=== PATIENT | female | born 1955 | race Caucasian/White ===

== ENCOUNTER 2018-08-07 08:21 | Emergency (ER) | payer BC ==
--- NOTE | 2018-08-07 09:15 | EDM.PDOC ---
ED HPI GENERAL MEDICAL PROBLEM - General Chief Complaint: Lower Extremity Injury/Pain Stated Complaint: RT KNEE Time Seen by Provider: 08/07/18 08:50 Source of Information: Reports: Patient History Limitations: Reports: No Limitations - History of Present Illness INITIAL COMMENTS - FREE TEXT/NARRATIVE: The patient reports to the ED with right knee pain. The patient reports she fell about 2 months ago, but twisted her knee 2 days ago (when her current symptoms started). The patient reports she has been resting the area, but continues to have both lateral and medial pain which increases with weigh bearing. 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 Right Knee Pain Score (Numeric/FACES): 8 - Related Data Allergies Allergy/AdvReac Type Severity Reaction Status Date / Time celecoxib [From Celebrex] Allergy Nausea Verified 08/07/18 08:34 [id number] [From Nubain] Allergy Hypotension Verified 08/07/18 08:34 prochlorperazine Allergy Anaphylactic Verified 08/07/18 08:34 [From Compazine] Shock Home Meds: Home Meds DULoxetine [Cymbalta] 60 mg PO DAILY 05/06/18 [History] Hydrocodone/Acetaminophen [Hydrocodon-Acetaminophen 5-325] 1 tab PO Q6H PRN [History] Ibuprofen 800 mg PO Q8HR PRN 05/06/18 [History] Lisinopril 40 mg PO DAILY 05/06/18 [History] Metaxalone [Skelaxin] 800 mg PO BID 05/06/18 [History] Metoprolol Succinate [Toprol XL 50mg] 50 mg PO DAILY 05/06/18 [History] Multivitamin [Multi-Vitamin Daily] 1 tab PO DAILY 05/06/18 [History] atorvaSTATin [Lipitor] 20 mg PO DAILY 05/06/18 [History] busPIRone HCl [Buspirone HCl] 7.5 mg PO DAILY 05/06/18 [History] metFORMIN HCl [Metformin HCl] 1,000 mg PO BID 05/06/18 [History] traZODone HCl [Trazodone HCl] 25 mg PO DAILY 05/06/18 [History] Past Medical History HEENT History: Reports: Impaired Vision Cardiovascular History: Reports: Hypertension Respiratory History: Reports: None Gastrointestinal History: Reports: None Genitourinary History: Reports: None 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 Neurological History: Reports: None Psychiatric History: Reports: Anxiety, Depression Endocrine/Metabolic History: Reports: Diabetes, Type II, Obesity/BMI 30+ Hematologic History: Reports: None Immunologic History: Reports: None Oncologic (Cancer) History: Reports: None Dermatologic History: Reports: None - Infectious Disease History Infectious Disease History: Reports: None - Past Surgical History Head Surgeries/Procedures: Reports: None Musculoskeletal Surgical History: Reports: Knee Replacement, Shoulder Replacement Social & Family History - Family History Family Medical History: Noncontributory - Tobacco Use Smoking Status *Q: Never Smoker Second Hand Smoke Exposure: No - Caffeine Use Caffeine Use: Reports: Coffee, Soda - Recreational Drug Use Recreational Drug Use: No - Living Situation & Occupation Living situation: Reports: , with Spouse Occupation: Unemployed Review of Systems - Review of Systems Review Of Systems: ROS reveals no pertinent complaints other than HPI. ED EXAM, GENERAL - Physical Exam Exam: See Below Exam Limited By: No Limitations General Appearance: Alert, WD/WN, Moderate Distress Eye Exam: Bilateral Eye: EOMI Ears: Normal External Exam Nose: Normal Inspection Throat/Mouth: Normal Inspection Head: Atraumatic Neck: Normal Inspection, Supple, Non-Tender, Full Range of Motion Respiratory/Chest: No Respiratory Distress, Lungs Clear, Normal Breath Sounds, No Accessory Muscle Use, Chest Non-Tender Cardiovascular: Normal Peripheral Pulses, Regular Rate, Rhythm, No Edema, No Gallop, No JVD, No Murmur, No Rub GI/Abdominal: Normal Bowel Sounds, Soft, Non-Tender, No Organomegaly, No Distention, No Abnormal Bruit, No Mass (Female) Exam: Deferred Rectal (Female) Exam: Deferred Back Exam: Normal Inspection, Full Range of Motion, NT Extremities: Non-Tender, No Pedal Edema, Leg Pain (right lateral and medial knee pain), Other (increased with medial and lateral movement. ) Neurological: Alert, Oriented, CN II-XII Intact, Normal Cognition, Normal Gait, Normal Reflexes, No Motor/Sensory Deficits Psychiatric: Normal Affect, Normal Mood Skin Exam: Warm, Dry, Intact, Normal Color, No Rash Lymphatic: No Adenopathy Course - Vital Signs Last Recorded V/S: Last Vital Signs Temp 36.0 C 08/07/18 08:30 Pulse 73 08/07/18 08:28 Resp 18 08/07/18 08:28 BP 130/68 08/07/18 08:28 Pulse Ox 98 08/07/18 08:28 Departure - Departure Time of Disposition: 09:14 Disposition: Home, Self-Care 01 Condition: Fair Clinical Impression: Strain of right knee Qualifiers: Encounter type: initial encounter Qualified Code(s): S86.911A - Strain of unspecified muscle(s) and tendon(s) at lower leg level, right leg, initial encounter - Discharge Information *PRESCRIPTION DRUG MONITORING PROGRAM REVIEWED*: Not Applicable *COPY OF PRESCRIPTION DRUG MONITORING REPORT IN PATIENT PRISCILLA: Not Applicable Instructions: Knee Sprain, Adult, [id number] Care Plan Goals: The patient was advised of the examination and x-ray results during the visit. The patient was placed in a right knee immobilizer and given a set of crutches. The patient was encouraged to rest, ice and elevate her right knee. If the patient continues to have pain with movement, the patient should follow-up with her primary care facility for further evaluation and management.
== END 2018-08-07 09:20 | disposition home or self-care (01) ==
LOC: DL.ED 08:21
DX: S86.911A Strain of unspecified muscle(s) and tendon(s) at lower leg level, right leg, initial encounter (principal); I10 Essential (primary) hypertension; E11.9 Type 2 diabetes mellitus without complications; E66.9 Obesity, unspecified; Z79.899 Other long term (current) drug therapy; Z79.84 Long term (current) use of oral hypoglycemic drugs; Z88.8 Allergy status to other drugs, medicaments and biological substances; X50.1XXA Overexertion from prolonged static or awkward postures, initial encounter
CPT/HCPCS: 73562-RT; 99283